=== PATIENT | male | born 1940 | race Caucasian/White ===

== ENCOUNTER → 2016-09-23 | Outpatient (CLI) | payer MEDICARE ==
[2016-09-23 09:03] LABS: BASO % 1 % (0-3); EOS % 5 % (0-3); HEMATOCRIT 42.4 % (39.0-53.0); HEMOGLOBIN 14.1 g/dL (13.0-17.5); LYMPH # 1.8 x10^3/uL (1.0-4.8); LYMPH % 25 % (24-48); MEAN CORPUSCULAR HEMOGLOBIN 28 pg (25-35); MEAN CORPUSCULAR HGB CONC 33 g/dL (31-37); MEAN CORPUSCULAR VOLUME 83 fL (79-100); MONO % 10 % (0-9); NEUT % 59 % (31-73); PLATELET COUNT 254 x10^3/uL (140-400); RED BLOOD COUNT 5.11 x10^6/uL (4.30-5.70); RED CELL DISTRIBUTION WIDTH 14.2 % (11.5-14.5); WHITE BLOOD COUNT 7.1 x10^3/uL (4.0-11.0)
[2016-09-23 09:55] LABS: ALBUMIN 3.6 g/dL (3.4-5.0); ALBUMIN/GLOBULIN RATIO 1.2 (1.0-1.7); CALCIUM 8.9 mg/dL (8.5-10.1); CREATININE 1.1 mg/dL (0.7-1.3); GFR 65.1; POTASSIUM 4.3 mmol/L (3.5-5.1); TOTAL BILIRUBIN 0.6 mg/dL (0.2-1.0); TOTAL PROTEIN 6.7 g/dL (6.4-8.2)
[2016-09-23 09:59] LABS: CHOLESTEROL/HDL RATIO 2.4
[2016-09-23 10:03] LABS: FREE T4 1.13 ng/dL (0.76-1.46)
[2016-09-23 17:13] LABS: PROSTATE SPECIFIC AG SCREEN 4.3 ng/mL (0.0-4.0); T3 TOTAL 106 ng/dL (71-180); THYROXINE 9.4 ug/dL (4.5-12.0)
== END | disposition home or self-care (01) ==
LOC: LAB 08:41
PROVIDERS: ATTEND Family Medicine
DX: I10 Essential (primary) hypertension (principal); N40.0 Benign prostatic hyperplasia without lower urinary tract symptoms; D51.0 Vitamin B12 deficiency anemia due to intrinsic factor deficiency
CPT/HCPCS: 36415; 80053; 80061; 83036; 84436; 84439; 84443; 84480; 85027; G0103

== ENCOUNTER → 2016-11-04 | Outpatient (CLI) | payer MEDICARE ==
[2016-11-07 07:31] LABS: FREE PSA/PSA RATIO 41.3 % (.); PSA FREE 1.86 ng/mL; PSA TOTAL 4.5 ng/mL (0.0-4.0)
== END | disposition home or self-care (01) ==
LOC: LAB 09:39
PROVIDERS: ATTEND Obstetrics & Gynecology
DX: R97.20 Elevated prostate specific antigen [PSA] (principal)
CPT/HCPCS: 36415; 83036; 84520

== ENCOUNTER → 2017-03-10 | Outpatient (CLI) | payer MEDICARE ==
--- NOTE | 2017-03-11 08:24 | KCIC ---
MRI of the lumbar spine without contrast 03/10/2017 CLINICAL HISTORY: Subacute low back pain which radiates down the right leg for the last 10 days. TECHNIQUE: Unenhanced T1-weighted, T2-weighted and inversion recovery sagittal and T1 weighted and T2 weighted axial images of the lumbar spine were obtained. FINDINGS: Minimal S-shaped curvature of the thoracolumbar spine is seen. Degenerative signal changes are seen involving all of the discs of the lumbar spine. Degenerative signal changes are seen within the marrow surrounding these discs. Loss of height of the L3-4, L4-5 and L5-S1 discs is noted. The conus medullaris is normal in morphology, position, and signal characteristics. Several high signal intensity lesions are seen scattered throughout both kidneys on the T2-weighted images, left greater than right. These measure 1 cm to 5 cm in size. They likely represent cysts. At the L1-2 disc space there is a minimal generalized disc bulge. Degenerative changes are seen involving the facet joints bilaterally. There is mild ligamentum flavum hypertrophy bilaterally. These findings do not result in significant central spinal canal or neural foraminal stenosis. At the L2-3 disc space there is a mild generalized disc bulge. Degenerative changes are seen involving the facet joints bilaterally. There is mild to moderate ligamentum flavum hypertrophy bilaterally. This findings with combined with prominence of the posterior vertebral fat result in very mild central spinal canal stenosis. No neural foraminal stenosis is seen. At the L3-4 disc space there is a mild generalized disc bulge. Degenerative changes are seen involving the facet joints bilaterally. There is mild ligamentum flavum hypertrophy bilaterally. These findings when combined do not result in significant central spinal canal or neural foraminal stenosis. At the L4-5 disc space there is a moderate generalized disc bulge. Degenerative changes are seen involving the facet joints, right greater than left. There is moderate ligamentum flavum hypertrophy bilaterally. These findings when combined result in mild central spinal canal stenosis. Mild to moderate right greater than left neural foraminal stenosis is seen. At the L5-S1 disc space there is a mild generalized disc bulge. Degenerative changes are seen involving the facet joints bilaterally. These findings when combined do not result in significant central spinal canal or neural foraminal stenosis. IMPRESSION: The changes of degenerative disc disease are seen involving the lumbar spine. These findings result in very mild central spinal canal stenosis at L2-3 and mild central spinal canal stenosis with mild to moderate right greater than left neural foraminal stenosis at L4-5. Electronically signed by: Juan Jeffery MD (03/11/2017 8:20 AM)
== END | disposition home or self-care (01) ==
LOC: KCIC MRI 17:13
PROVIDERS: ATTEND Physical Medicine & Rehabilitation
DX: M48.06 Spinal stenosis, lumbar region (principal); M51.16 Intervertebral disc disorders with radiculopathy, lumbar region; S39.012A Strain of muscle, fascia and tendon of lower back, initial encounter; M43.8X5 Other specified deforming dorsopathies, thoracolumbar region; M47.896 Other spondylosis, lumbar region; M24.28 Disorder of ligament, vertebrae; X58.XXXA Exposure to other specified factors, initial encounter; Y93.89 Activity, other specified; Y92.89 Other specified places as the place of occurrence of the external cause; Y99.8 Other external cause status
CPT/HCPCS: 72148

== ENCOUNTER → 2018-09-21 | Outpatient (CLI) | payer MEDICARE ==
[2018-09-21 08:11] LABS: BILIRUBIN,URINE NEGATIVE (NEG); CLARITY,URINE CLEAR; COLOR,URINE YELLOW; NITRITE,URINE NEGATIVE (NEG); PROTEIN,URINE NEGATIVE (NEG-TRACE); UROBILINOGEN,URINE 0.2 mg/dL (0.2 mg/dL)
[2018-09-21 08:15] LABS: ALBUMIN 3.4 g/dL (3.4-5.0); DIRECT BILIRUBIN 0.2 mg/dL (0.0-0.2); GFR 72.3; POTASSIUM 4.3 mmol/L (3.5-5.1); TOTAL BILIRUBIN 0.8 mg/dL (0.2-1.0); TOTAL PROTEIN 6.9 g/dL (6.4-8.2)
[2018-09-21 08:16] LABS: BASO # 0.1 x10^3/uL (0.0-0.2); BASO % 1 % (0-3); CHOLESTEROL/HDL RATIO 1.8; EOS # 0.2 x10^3/uL (0.0-0.7); EOS % 3 % (0-3); HEMATOCRIT 44.5 % (39.0-53.0); HEMOGLOBIN 15.1 g/dL (13.0-17.5); LYMPH # 1.7 x10^3/uL (1.0-4.8); LYMPH % 26 % (24-48); MEAN CORPUSCULAR HEMOGLOBIN 29 pg (25-35); MEAN CORPUSCULAR HGB CONC 34 g/dL (31-37); MEAN CORPUSCULAR VOLUME 86 fL (79-100); MONO # 0.5 x10^3/uL (0.0-1.1); MONO % 8 % (0-9); NEUT % 62 % (31-73); PLATELET COUNT 225 x10^3/uL (140-400); RED BLOOD COUNT 5.18 x10^6/uL (4.30-5.70); WHITE BLOOD COUNT 6.5 x10^3/uL (4.0-11.0)
[2018-09-21 08:48] LABS: BACTERIA,URINE 0 /HPF (0-FEW); RBC,URINE 0 /HPF (0-2); SQUAMOUS EPITHELIAL CELL,UR FEW /LPF; WBC,URINE 0 /HPF (0-4)
[2018-09-21 22:13] LABS: HEMOGLOBIN A1C 6.2 % (4.8-5.6)
== END | disposition home or self-care (01) ==
LOC: LAB 07:36
PROVIDERS: ATTEND Family Medicine
DX: I10 Essential (primary) hypertension (principal); E78.5 Hyperlipidemia, unspecified; E03.9 Hypothyroidism, unspecified; N40.0 Benign prostatic hyperplasia without lower urinary tract symptoms; E55.9 Vitamin D deficiency, unspecified; D64.89 Other specified anemias; R73.09 Other abnormal glucose; R06.09 Other forms of dyspnea; R94.5 Abnormal results of liver function studies
CPT/HCPCS: 36415; 80048; 80061; 80076; 81001; 82306; 82607; 83036; 84153; 84443; 85025; G0103

== ENCOUNTER → 2019-02-05 | Outpatient (CLI) | payer MEDICARE ==
--- NOTE | 2019-02-09 10:56 | CARD ---
MR#: [id number] Date of Study: 02/05/2019 Ordering Physician: XAVIER BLACK, Referring Physician: XAVIER BLACK, Tech: Deedee Hobbs RDCS APPROVED REPORT EXAM: Two-dimensional and M-mode echocardiogram with Doppler and color Doppler. Other Information Quality : Good Rhythm : Atrial Fibrillation INDICATION Murmur 2D DIMENSIONS RVDd3.2 (2.9-3.5cm)Left Atrium(2D)4.6 (1.6-4.0cm) IVSd1.4 (0.7-1.1cm)Aortic Root(2D)3.4 (2.0-3.7cm) LVDd4.2 (3.9-5.9cm)LVOT Diameter2.5 (1.8-2.4cm) PWd1.0 (0.7-1.1cm)LVDs3.0 (2.5-4.0cm) FS (%) 28.2 %SV43.2 ml LVEF(%)54.8 (>50%) Aortic Valve AoV Peak Luis.83.3cm/sAoV VTI14.2cm AO Peak GR.2.8mmHgLVOT Peak Luis.68.7cm/s AO Mean GR.1mmHgAVA (VMAX)4.17cm2 JULIAN (VTI)4.52rf4UN P 1/2 Oypa582km Tricuspid Valve TR P. Hgsbehdl433bz/sRAP VFXJEHGH4qkZp TR Peak Gr.18fuXuWRSK58lpNa Pulmonary Vein S1 Egrcgmmw00.0cm/sD2 Wvlpvrua39.7cm/s LEFT VENTRICLE The left ventricle is normal size. There is mild asymmetric septal hypertrophy. The left ventricular systolic function is normal. The Ejection Fraction is 60%. There is normal LV segmental wall motion. RIGHT VENTRICLE The right ventricle is normal size. The right ventricular systolic function is normal. ATRIA The left atrium is mildly dilated. The right atrium size is normal. The interatrial septum is intact with no evidence for an atrial septal defect or patent foramen ovale as noted on 2-D or Doppler imagi ng. AORTIC VALVE The aortic valve is calcified but opens well. Doppler and Color Flow revealed trace aortic regurgitat ion. There is no significant aortic valvular stenosis. MITRAL VALVE The mitral valve is calcified but opens well. There is no evidence of mitral valve prolapse. There is no mitral valve stenosis. Doppler and Color-flow revealed trace mitral regurgitation. TRICUSPID VALVE The tricuspid valve is normal in structure and function. Doppler and Color Flow revealed mild tricusp id regurgitation. The PA pressure was estimated at 30 mmHg. There is no tricuspid valve stenosis. PULMONIC VALVE The pulmonic valve is not well visualized. Doppler and Color Flow revealed mild pulmonic valvular reg urgitation. There is no pulmonic valvular stenosis. GREAT VESSELS The aortic root is normal in size. The ascending aorta is moderately dilated. The IVC is normal in si ze and collapses >50% with inspiration. PERICARDIAL EFFUSION There is no evidence of significant pericardial effusion. Critical Notification Critical Value: No <Conclusion> The left ventricular systolic function is normal. The Ejection Fraction is 60%. There is normal LV segmental wall motion. Trace mitral regurgitation. Mild tricuspid regurgitation. The PA pressure was estimated at 30 mmHg. There is no evidence of significant pericardial effusion. Signed by : Riley Mercer, Electronically Approved : 02/05/2019 11:27:01
== END | disposition home or self-care (01) ==
LOC: ECHO 09:39
PROVIDERS: ATTEND Internal Medicine Cardiovascular Disease
DX: I08.8 Other rheumatic multiple valve diseases (principal); I11.9 Hypertensive heart disease without heart failure; I48.91 Unspecified atrial fibrillation
CPT/HCPCS: 93306

== ENCOUNTER 2019-03-05 10:33 | Day surgery (SDC) | payer MEDICARE ==
[~2019-03-05 10:33] MED LIST: HYDROmorphone 2 MG/ML VIAL IV PRN; IV RINGERS,LACTATED 1000ML 1,000 ML IV SCH; MORPHINE SULFATE 2 MG/ML VIAL. IV PRN; ONDANSETRON PF 4 MG/2 ML VIAL. IV PRN; PROCHLORPERAZINE 10 MG/2 ML VIAL. IV PRN; fentaNYL PF VIAL 100 MCG/2 ML VIAL IV PRN
[2019-03-05] MEDS ORDERED: RANI300T3 PO (11:03)
[2019-03-05] MEDS ORDERED: METO-269 PO (11:03)
[2019-03-05] MEDS ORDERED: TRIA1TAB2 PO (11:04)
[2019-03-05] MEDS ORDERED: APIX5TAB PO (11:04)
[2019-03-05] MEDS ORDERED: PROPOFOL 20 ML IV ONE (11:04)
[2019-03-05] MEDS ORDERED: CYAN10005 IM (11:06)
[2019-03-05] MEDS ORDERED: CHOL100013 PO (11:07)
[2019-03-05] MEDS ORDERED: ATOR40TA PO (11:09)
[2019-03-05 11:50] LABS: CALCIUM 8.6 mg/dL (8.5-10.1); CREATININE 1.1 mg/dL (0.7-1.3); GFR 64.6; POTASSIUM 3.9 mmol/L (3.5-5.1)
[2019-03-05 13:05] VITALS: BP 140/77
--- NOTE | 2019-03-05 13:05 | EKG ---
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
--- NOTE | 2019-03-05 13:07 | EKG ---
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
--- NOTE | 2019-03-05 15:26 | PDOC4 ---
Operative Note Operative Note Diagnosis. Atrial fibrillation. Procedure. Electrical cardioversion. The patient is a 78-year-old male who was found to have atrial fibrillation approximately 5 weeks ago. He was started on rate control medications and anticoagulation. Echo cardiogram showed intact LV function. Lab testing today showed a potassium of 3.9. Electrical cardioversion was discussed with the patient in the office. Risks and benefits were covered. He agreed to proceed. The patient was seen by the anesthesiology service. Informed consent was obtained for cardioversion. The anesthesiology service provided sedation and once an appropriate level of sedation was obtained the patient was cardioverted from atrial fibrillation to sinus rhythm with one discharge of synchronized energy at 200 J. He will normally from anesthesia. He will continue on his p resent medications including anticoagulation. We will follow him up in 3 weeks in the office. Conclusions. Successful electrical cardioversion of atrial fibrillation to normal sinus rhythm. XAVIER BLACK MD Mar 05, 2019 15:26
== END 2019-03-05 13:37 | disposition home or self-care (01) ==
LOC: SURG 10:33
PROVIDERS: ATTEND Internal Medicine Cardiovascular Disease
DX: I48.91 Unspecified atrial fibrillation (principal); I10 Essential (primary) hypertension; K21.9 Gastro-esophageal reflux disease without esophagitis; E78.5 Hyperlipidemia, unspecified; Z88.8 Allergy status to other drugs, medicaments and biological substances; Z79.899 Other long term (current) drug therapy
CPT/HCPCS: 36415; 80048; 92960; 93005; J2704

== ENCOUNTER → 2019-03-15 | Outpatient (CLI) | payer MEDICARE ==
[2019-03-05 13:05] VITALS: BP 140/77
[~2019-03-15] MED LIST changes: +APIX5TAB PO; +ATOR40TA PO; +CHOL100013 PO; +CYAN10005 IM; -HYDROmorphone 2 MG/ML VIAL IV PRN; -IV RINGERS,LACTATED 1000ML 1,000 ML IV SCH; +METO-269 PO; -MORPHINE SULFATE 2 MG/ML VIAL. IV PRN; -ONDANSETRON PF 4 MG/2 ML VIAL. IV PRN; -PROCHLORPERAZINE 10 MG/2 ML VIAL. IV PRN; +RANI300T3 PO; +REGADENOSON 0.4 MG/5 ML DISP.SYRIN. IV ONE; +TRIA1TAB2 PO; -fentaNYL PF VIAL 100 MCG/2 ML VIAL IV PRN
--- NOTE | 2019-03-15 12:31 | RAD ---
MR#: [id number] Date of Study: 03/15/2019 Ordering Physician: XAVIER RUANO, Referring Physician: AN ALMEIDA Tech: TADEO Ortiz APPROVED REPORT Test Type: Pharmacological Stress Nurse/Tech: Natalya Pereira R.N. Test Indications: Afib- cardioversion in February Cardiac History: afib,htn Medications: See Electronic Medical Record Medical History: See Electronic Medical Record Resting ECG: afib w/ slight ST elevation i n lead V2V3 Resting Heart Rate: 63 bpm Resting Blood Pressure: 128/79mmHg Pretest Chest Pain: No chest pain Nurse/Tech Notes irregular rhythm, lungs CTA Consent: The procedure was explained to the patient in lay terms. Informed consent was witnessed. Winston eout was entered into [employer]. History and Stress Test performed by TADEO rOtiz Pharm. Details Pharmacologic stress testing was performed using 0.4mg per 5ml of regadenoson given intravenously ove r 7-10 seconds. Stress Symptoms SOB POST EXERCISE Reason for Termination: Infusion complete Max HR: 106 bpm Max Blood Pressure: 148/84mmHg Blood Pressure response to exercise: Normal blood pressure response during stress. Heart Rate response to exercise: wnl Chest Pain: No. Arrhythmia: No. no change from baseline Afib ST Change: No. INTERPRETATION Stress EKG Conclusion: The resting EKG shows atrial fib/flutter with nonspecific ST changes. The stress EKG shows no significant changes from baseline. No EKG evidence of stressed induced ischemia. Imaging Protocol IMAGE PROTOCOL: Rest Tc-99m/stress Tc-99m 1 day Rest: Stress: Viability: Radiopharm.Tc99m NmfdgwbwtZi66i Sestamibi Dose11.3mCi 32mCi Duration 13.5min. 13.5min. Img Date 03/15/2019 03/15/2019 Inj-Img [id number]. 60min. Rest Admin Site:IV - Right AntecubitalAdministrator:TADEO Ortiz Stress Admin Site: IV - Right AntecubitalAdministrator: WALKER Leyva, ARRT (R)(N) STRESS DATA End Diast. Vol.93.0mlLVEDV index BSA46.0ml End Syst. Vol.27.0mlLVESV index BSA13.0ml Myocardial Ytrb543.0gEject. Gbhpzfro51.0% Stress Scores Regional WT0.00Summed WT2.00 Regional WM0.00Summed WM0.00 LV Perfusion The stress scans showed no significant abnormalities. The rest scans showed no significant abnormalities. Nuclear imaging shows no reversible ischemia or infarct. Wall Motion Normal left ventricular systolic function with an ejection fraction of greater than 70%. LV Perf. Quant 17 Seg. SSS0.00 17 Seg. SRS1.00 17 Seg. SDS0.00 Stress Defect Extent (% LAD)0.00Rest Defect Extent (% LAD)2.50Rev. Defect Extent (% LAD)0.00 Stress Defect Extent (% LCX) 0.00Rest Defect Extent (% LCX)0.00Rev. Defect Extent (% LCX)0.00 Stress Defect Extent (% RCA)0.00Rest Defect Extent (% RCA)0.00Rev. Defect Extent (% RCA)0.00 Stress Defect Extent (% HAIDER)0.00Rest Defect Extent (% HAIDER)0.90Rev. Defect Extent (% HAIDER)0.00 Conclusion 1. No EKG evidence of stress-induced ischemia. 2. Nuclear imaging shows no reversible ischemia or infarct. 3. Normal left ventricular systolic function with an ejection fraction of greater than 70%. 4. Low risk Lexiscan nuclear stress test. Signed by : Xavier Ruano MD Electronically Approved : 03/15/2019 12:31:20
== END | disposition home or self-care (01) ==
LOC: NM 08:08
PROVIDERS: ATTEND Internal Medicine Cardiovascular Disease
DX: I48.91 Unspecified atrial fibrillation (principal); I21.3 ST elevation (STEMI) myocardial infarction of unspecified site; I10 Essential (primary) hypertension
CPT/HCPCS: 78452; 93017; A9500; J2785

== ENCOUNTER 2019-04-05 09:10 | Day surgery (SDC) | payer MEDICARE ==
[~2019-04-05 09:10] MED LIST changes: +AZEL205. NS; +CYAN10005 INJ; +FLEC100T PO; -REGADENOSON 0.4 MG/5 ML DISP.SYRIN. IV ONE; +TAMS0.4C97 PO
[2019-04-05] MEDS ORDERED: PROPOFOL 20 ML IV ONE (09:39)
[2019-04-05 09:53] LABS: HEMATOCRIT 40.9 % (39.0-53.0); HEMOGLOBIN 13.8 g/dL (13.0-17.5); RED BLOOD COUNT 4.76 x10^6/uL (4.30-5.70); RED CELL DISTRIBUTION WIDTH 14.6 % (11.5-14.5)
[2019-04-05 10:03] LABS: CALCIUM 8.6 mg/dL (8.5-10.1); CREATININE 1.3 mg/dL (0.7-1.3); GFR 53.3; MAGNESIUM 1.8 mg/dL (1.8-2.4); POTASSIUM 4.2 mmol/L (3.5-5.1)
--- NOTE | 2019-04-05 10:20 | EKG ---
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
[2019-04-05] MEDS: IV RINGERS,LACTATED 1000ML 1,000 ML IV SCH (10:30)
--- NOTE | 2019-04-05 11:29 | EKG ---
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
[2019-04-05 11:45] VITALS: BP 122/68
--- NOTE | 2019-04-06 11:14 | PDOC4 ---
PROCEDURE Procedure Procedure. Cardioversion The patient is a 78-year-old male with a history of atrial fibrillation. Patient has been on anticoagulation for greater than one month and was started by the EP physicians on flecainide. He was scheduled for a electrical cardioversion of atrial fibrillation. Risks and benefits were discussed with the patient. Informed consent was obtained. The anesthesiology service provided appropriate sedation. Once the proper level of sedation was obtained the patient was converted from atrial fibrillation to normal sinus rhythm with a single 200 J synchronized discharge. The patient awoke normally from his sedation. He will continue on his present home medications. Conclusion. Successful cardioversion of atrial fibrillation to normal sinus rhythm. XAVIER BLACK MD Apr 06, 2019 11:14
== END 2019-04-05 12:27 | disposition home or self-care (01) ==
LOC: SURG 09:10
PROVIDERS: ATTEND Internal Medicine Cardiovascular Disease
DX: I48.91 Unspecified atrial fibrillation (principal)
CPT/HCPCS: 36415; 80048; 83735; 85027; 92960; 93005; J2704

== ENCOUNTER → 2020-11-21 | Outpatient (CLI) | payer MEDICARE ==
[2019-10-29 11:00] VITALS: BP 125/59
[~2020-11-21] MED LIST changes: +CIPR500T94 PO; +CYAN-25 IM; +CYAN-25 INJ; -CYAN10005 IM; -CYAN10005 INJ; +FAMO20TA5 PO; +METO-239 PO; +OXYB5TAB10 PO
[2020-11-21 10:03] LABS: BASO % 1 % (0-3); EOS # 0.3 x10^3/uL (0.0-0.7); EOS % 6 % (0-3); HEMATOCRIT 38.1 % (39.0-53.0); HEMOGLOBIN 12.8 g/dL (13.0-17.5); LYMPH # 1.2 x10^3/uL (1.0-4.8); LYMPH % 23 % (24-48); MEAN CORPUSCULAR HEMOGLOBIN 29 pg (25-35); MEAN CORPUSCULAR HGB CONC 34 g/dL (31-37); MEAN CORPUSCULAR VOLUME 86 fL (79-100); MONO # 0.4 x10^3/uL (0.0-1.1); MONO % 8 % (0-9); NEUT # 3.1 x10^3/uL (1.8-7.7); NEUT % 62 % (31-73); PLATELET COUNT 211 x10^3/uL (140-400); RED BLOOD COUNT 4.45 x10^6/uL (4.30-5.70); RED CELL DISTRIBUTION WIDTH 13.6 % (11.5-14.5); WHITE BLOOD COUNT 5.1 x10^3/uL (4.0-11.0)
[2020-11-21 10:32] LABS: ALBUMIN 3.5 g/dL (3.4-5.0); ALBUMIN/GLOBULIN RATIO 1.1 (1.0-1.7); CALCIUM 8.8 mg/dL (8.5-10.1); CHOLESTEROL/HDL RATIO 2.5; CREATININE 1.2 mg/dL (0.7-1.3); GFR 58.1; POTASSIUM 4.1 mmol/L (3.5-5.1); TOTAL BILIRUBIN 0.6 mg/dL (0.2-1.0); TOTAL PROTEIN 6.8 g/dL (6.4-8.2)
[2020-11-21 10:44] LABS: FREE T4 1.28 ng/dL (0.76-1.46); THYROID STIM HORMONE (TSH) 1.539 uIU/mL (0.358-3.74)
[2020-11-21 21:08] LABS: THYROXINE 8.5 ug/dL (4.5-12.0)
[2020-11-22 01:10] LABS: HEMOGLOBIN A1C 5.9 % (4.8-5.6)
[2020-11-22 09:16] LABS: FREE PSA/PSA RATIO 32.9 % (.); PSA FREE 0.92 ng/mL; PSA TOTAL 2.8 ng/mL (0.0-4.0)
== END ==
LOC: LAB 09:27
PROVIDERS: ATTEND Obstetrics & Gynecology
DX: E04.1 Nontoxic single thyroid nodule (principal); N40.1 Benign prostatic hyperplasia with lower urinary tract symptoms; E56.9 Vitamin deficiency, unspecified; E78.5 Hyperlipidemia, unspecified; R73.09 Other abnormal glucose; Z79.899 Other long term (current) drug therapy
CPT/HCPCS: 36415; 80053; 80061; 82306; 82607; 83036; 84153; 84154; 84436; 84439; 84443; 84480; 84481; 85025

== ENCOUNTER → 2021-10-10 | Outpatient (CLI) | payer MEDICARE ==
[2019-10-29 11:00] VITALS: BP 125/59
[2021-10-10 09:55] LABS: BILIRUBIN,URINE NEGATIVE (NEG); CLARITY,URINE CLEAR; COLOR,URINE YELLOW; NITRITE,URINE NEGATIVE (NEG); PROTEIN,URINE NEGATIVE (NEG-TRACE); UROBILINOGEN,URINE 0.2 mg/dL (0.2 mg/dL)
[2021-10-10 09:59] LABS: BASO % 1 % (0-3); EOS # 0.3 x10^3/uL (0.0-0.7); EOS % 6 % (0-3); HEMATOCRIT 39.8 % (39.0-53.0); HEMOGLOBIN 13.1 g/dL (13.0-17.5); LYMPH # 1.3 x10^3/uL (1.0-4.8); LYMPH % 23 % (24-48); MEAN CORPUSCULAR HEMOGLOBIN 29 pg (25-35); MEAN CORPUSCULAR HGB CONC 33 g/dL (31-37); MEAN CORPUSCULAR VOLUME 87 fL (79-100); MONO # 0.5 x10^3/uL (0.0-1.1); MONO % 9 % (0-9); NEUT # 3.3 x10^3/uL (1.8-7.7); NEUT % 61 % (31-73); PLATELET COUNT 224 x10^3/uL (140-400); RED BLOOD COUNT 4.58 x10^6/uL (4.30-5.70); RED CELL DISTRIBUTION WIDTH 13.9 % (11.5-14.5); WHITE BLOOD COUNT 5.4 x10^3/uL (4.0-11.0)
[2021-10-10 10:06] LABS: BACTERIA,URINE 0 /HPF (0-FEW); RBC,URINE 0 /HPF (0-2); WBC,URINE RARE /HPF (0-4)
[2021-10-10 10:36] LABS: ALBUMIN 3.2 g/dL (3.4-5.0); ALBUMIN/GLOBULIN RATIO 1.1 (1.0-1.7); CALCIUM 7.7 mg/dL (8.5-10.1); CREATININE 1.1 mg/dL (0.7-1.3); GFR 64.2; POTASSIUM 4.2 mmol/L (3.5-5.1); TOTAL BILIRUBIN 0.4 mg/dL (0.2-1.0); TOTAL PROTEIN 6.2 g/dL (6.4-8.2)
[2021-10-10 10:41] LABS: CHOLESTEROL/HDL RATIO 4.3
[2021-10-10 10:51] LABS: FREE T4 1.18 ng/dL (0.76-1.46); THYROID STIM HORMONE (TSH) 1.279 uIU/mL (0.358-3.74)
[2021-10-14 13:09] LABS: FREE PSA/PSA RATIO 34.3 % (.); PSA FREE 0.72 ng/mL; PSA TOTAL 2.1 ng/mL (0.0-4.0)
== END ==
LOC: LAB 09:18
PROVIDERS: ATTEND Internal Medicine
DX: E55.9 Vitamin D deficiency, unspecified (principal); E53.8 Deficiency of other specified B group vitamins; N40.0 Benign prostatic hyperplasia without lower urinary tract symptoms; E07.9 Disorder of thyroid, unspecified; Z79.899 Other long term (current) drug therapy
CPT/HCPCS: 36415; 80053; 80061; 81001; 82306; 82607; 83036; 84153; 84154; 84439; 84443; 84480; 85025; G0103